=== PATIENT | female | born 1960 | race Caucasian/White ===

== ENCOUNTER → 2016-12-14 | Outpatient (CLI) | payer OTHER ==
[~2016-12-14] MED LIST: ACETAMINOPHEN650 M1 PO; ALBUTEROL17 GM INH; BYSTOLIC10 MG PO; BYSTOLIC20 MG PO; CEFTIN500 MG PO; CIPRO PO; DIFLUCAN100 MG PO; FLEXERIL10 M1 PO; FLONASE 0.05% N16 G1 INH; IBUPROFEN800 MG PO; LISINOPRIL10 MG PO; LISINOPRIL20 MG PO; LORTAB 10-5001 EACH PO; LORTAB 5/500 TA1 TA1 PO; MEDROL4 MG/DOSE- PO; NICOTINE TRANSD21 MG EXT; OCEAN45 ML INH; PHENERGAN W/CO120 ML PO; PREDNISONE10 MG PO; PRILOSEC20 MG PO; PROTONIX PO; SUBOXONE 8 MG-1 EAC1 SL; SYMBICORT INH; TESSALON200 MG PO; VALIUM2 MG PO; VERTIN-3225 MG PO; VICODIN 5/1 TAB 5/50 PO
--- NOTE | ~2016-12-14 | US5 ---
[facility] A Service of [facility] RADIOLOGY TEXT RESULTS PATIENT: KIANNA OWENS LOCATION: [facility] : 62 UNIT #: [id number] AGE: [address]: Alexander Gutierrez MD SEX: F ORDER DR: [id number] [facility] [address] [place], [place] [address] [id number] O MR#: [id number] Acc #: [id number] NAME: KIANNA OWENS : 1960 SEX: F STUDY DATE/TIME: 12/14/2016 9:25 UNIT: US ROOM: STUDY DESCRIPTION: US Abdominal Complete Attending Physician: Alexander Gutierrez III, M.D. Ordering Physician: Alexander Gutierrez III, M.D. Primary Care Physician: Yudelka Mera M.D. MEDICAL IMAGING REPORT This report is preliminary unless electronic signature is present EXAM Abdominal ultrasound. INDICATION Hepatitis C. This is part of routine surveillance. Most recent exam was in January 2015. TECHNIQUE Gay-scale, color Doppler, and spectral Doppler waveform analysis was performed through the abdomen. FINDINGS Visualized portion of the pancreas appear unremarkable. No focal hepatic lesions are seen and there is no intra or extrahepatic biliary dilatation. Gallbladder is normal in appearance with no stones or sludge seen and no gallbladder wall thickening or pericholecystic fluid identified. Both kidneys also appear normal with no solid or cystic renal masses seen and no hydronephrosis identified. Spleen is also within normal limits.. Please note there is limited visualization of the spleen and left kidney. IMPRESSION No acute disease. Dictated by... Mona Hoffman M.D. THIS IS AN ELECTRONICALLY VERIFIED REPORT Mona Hoffman M.D. at 12/14/2016 4:57 PM AFF/tmw TD: 12/14/2016 14:47 [facility] A Service of [facility] RADIOLOGY TEXT RESULTS PATIENT: KIANNA OWENS LOCATION: [facility] : 62 UNIT #: [id number] AGE: [address]: Alexander Gutierrez MD SEX: F ORDER DR: JOB #: [id number] MEDICAL IMAGING REPORT Page 1 of 1 COPY
== END | disposition home or self-care (01) ==
LOC: CGUS 08:55 → CWCC 09:00
DX: B18.2 Chronic viral hepatitis C (principal)
CPT/HCPCS: 76700